=== PATIENT | male | born 1960 | race Caucasian/White ===

== ENCOUNTER 2020-02-26 11:49 | Emergency (ER) | payer OTHER, SELFPAY ==
--- NOTE | 2020-02-26 11:51 | XR_ITS ---
WS: [id number] XR chest 1V portable [id number] REASON FOR EXAM: cp FINDINGS: Postop changes in the right shoulder noted. As well as has the left shoulder. The heart and mediastinal interfaces are normal. Lung juares are mildly hyper aerated suggesting emphysema centril obular. There is no pneumonia, pleural effusion, pulmonary edema, and no pneumothorax. The hilum and apices are normal. No osseous abnormalities. XR/XR chest 1V portable [id number] IMPRESSION: Centrilobular emphysema.
--- NOTE | 2020-02-26 11:51 | ECG_ITS ---
Measurements Intervals [place] Rate: 56 P: 30 MN: 190 QRS: 35 QRSD: 96 T: 45 QT: 453 QTc: 440 SINUS BRADYCARDIA No previous ECG available for comparison Electronically Signed On 02-26-2020 20:33:43 CDT by Barbara Perez M.D. [id number] f
[2020-02-26 11:54] VITALS: BP 170/101; PULSE 58; RESP 17; TEMP 36.9; O2SAT 98; BMI 24.3
[2020-02-26 12:19] VITALS: BP 154/97; PULSE 69; RESP 15; O2SAT 97
--- NOTE | 2020-02-26 12:25 | ED_ITS ---
HPI - Chest Pain General: Chief Complaint: Chest Pain Stated Complaint: CP Time Seen by Provider: 02/26/20 12:06 Source: patient Mode of arrival: ambulatory Limitations: no limitations History of Present Illness: HPI narrative: 59-year-old male who states he has had chest pain since he woke up this morning at 4 AM. Patient sent here from his PCP office for chest pain. Patient given aspirin nitro that he states nitro relieved his pain. His have a history of high blood pressure and is been smoking for 30 years. He denies any worsening of his pain. Denies any radiation or shortness of breath. He had no nausea. complaint: chest pain Onset (ago): hour(s) Onset: during rest Pain location: substernal Associated symptoms: Deny abdominal pain, dyspnea, fever(s), nausea or vomiting Review of Systems Const: Denies: fever(s), chills, body aches or change in appetite Eyes: Denies: blurry vision or eye discomfort ENMT: Denies: throat pain or dental pain Card: Reports: chest pain Resp: Denies: dyspnea GI: Denies: abdominal pain, nausea, vomiting or diarrhea : Denies: dysuria Musc: Denies: neck pain or back pain Skin/Breast: Denies: rash Neuro: Denies: headache(s) Psych: Denies: depression Cordell/Lymph: Denies: easy bruising All/Imm: Denies: urticaria PFSH ED PFSH: Family History Family/Other CAD (coronary artery disease) Diabetes Grandmother Diabetes Other Hypertension Social History Smoking and tobacco status: current every day smoker cigarettes Packs smoked per day: 0.5 Years cigarettes smoked: 30 and smokeless tobacco Smokeless tobacco user: snuff Smokeless tobacco details: can q 2-3 days Second hand smoke exposure: Yes Alcohol intake: current Alcohol intake frequency: few times a month Lives independently: Yes Household members: spouse Marital status: Current occupational status: employed Current occupation: [employer] History of recent travel: No Current gender identity: Male Special channing needs: No Agree to transfusion: Yes Physical Exam Const: COMMON NORMALS: no acute distress, patient oriented x3 and healthy appearing HENMT: COMMON NORMALS: normocephalic and atraumatic HEAD & SCALP: normocephalic and atraumatic Eye: COMMON NORMALS: Equal, round and reactive pupils present and EOMs intact bilaterally PUPIL: Yes Equal, round and reactive pupils present Neck/C-Spine: COMMON NORMALS: full ROM and supple Chest: COMMONS NORMALS: normal inspection of the chest and normal palpation of entire chest wall Resp: COMMON NORMALS: normal respiratory effort, No retractions, No use of accessory muscles and clear to auscultation bilaterally AUSCULTATION: clear to auscultation bilaterally Cardio: COMMON NORMALS: regular rate, regular rhythm and No murmurs present (Cardio) RATE: regular rate RHYTHM: regular rhythm GI: COMMON NORMALS: Normal to inspection, nondistended, normoactive bowel sounds present, Soft to palpation, non-tender and no masses PALPATION: Yes S oft to palpation Extremity: COMMON NORMALS: normal to inspection and full ROM Neuro: COMMON NORMALS: patient oriented x3, moves all extremities and no focal motor deficits Psych: COMMON NORMALS: mental status grossly normal, Normal thought process present and cooperative THOUGHT PROCESS: Normal thought process present Skin: COMMON NORMALS: no rashes or lesions noted and no wounds GENERAL SKIN EXAM: no rashes or lesions noted Course Vital Signs: Vital signs: Vital Signs Temperature 98.4 F 02/26/20 11:54 Pulse Rate 69 02/26/20 12:19 Respiratory Rate 15 02/26/20 12:19 Blood Pressure 154/97 02/26/20 12:19 Pulse Oximetry 97 02/26/20 12:19 MDM - Chest Pain MDM Narrative: Medical decision making narrative: 59-year-old male who presents here with chest pain. Patient's initial and repeat EKG along with troponins are normal. I did offer him admission the refused and states he would rather follow-up outpatient. He is to follow-up with PCP this week and I informed him he needs an outpatient stress test. I informed her if he has any more pain he is to return immediately. Patient understands and agrees to the plan. Lab Data: Labs: Lab Results 02/26/20 02/26/20 02/26/20 Range/Units 12:20 12:20 12:20 WBC 5.9 (4.0-10.0) 10^3/ uL RBC 4.55 (4.1-5.3) 10^6/u L Hgb 15.5 (11.7-16.6) g/dL Hct 46.3 (42.0-52.0) % MCV 101.8 H (80-94) fL MCH 34.1 H (28.0-34.0) pg MCHC 33.5 (30.0-36.0) g/dL RDW 12.5 (12.1-15.1) % Plt Count 193 (130-400) 10^3/c mm MPV 11.8 H (7.4-10.4) fL Neut % (Auto) 64.8 % Lymph % (Auto) 23.6 % [place] % (Auto) 8.9 % Eos % (Auto) 1.7 % Baso % (Auto) 0.7 % Neut # (Auto) 3.8 (1.8-7.7) 10^3/u L Lymph # (Auto) 1.4 (0.8-4.8) 10^3/u L [place] # (Auto) 0.5 (0.2-0.9) 10^3/u L Eos # (Auto) 0.1 (0.0-0.8) 10^3/u L Baso # (Auto) 0.0 (0.0-0.1) 10^3/u L Nucleated RBC % (a uto) 0 % Nucleated RBCs # 0.0 /100WBC Sodium 139 (136-145) mmol/L Potassium 3.9 (3.5-5.1) mmol/L Chloride 103 (98-107) mmol/L Carbon Dioxide 23 (22-29) mmol/L Anion Gap 16.9 (5-19) BUN 19 (6-20) mg/dL Creatinine 0.5 L (0.7-1.2) mg/dL GFR Calculation 170.8 H (90-130) mL/min Glucose 99 (65-115) mg/dL Calculated Osmolal ity 285 (285-295) mOsm/k g Calcium 9.3 (8.5-10.5) mg/dL Total Bilirubin 1.2 (0.15-1.2) mg/dL AST 22 (0-40) U/L ALT 22 (0-41) U/L Alkaline Phosphata se 80 (40-130) IU/L Troponin T Baselin e 6 (0-15) ng/L Troponin T 120 Min [place] (0-15) ng/L Delta Troponin T (0-10) ABS# Total Protein 6.6 (6.6-8.7) g/dL Albumin 4.3 (3.5-5.2) g/dL Globulin 2.3 (1.3-4.6) g/dL 02/26/20 Range/Units 14:10 WBC (4.0-10.0) 10^3/ uL RBC (4.1-5.3) 10^6/u L Hgb (11.7-16.6) g/dL Hct (42.0-52.0) % MCV (80-94) fL MCH (28.0-34.0) pg MCHC (30.0-36.0) g/dL RDW (12.1-15.1) % Plt Count (130-400) 10^3/c mm MPV (7.4-10.4) fL Neut % (Auto) % Lymph % (Auto) % [place] % (Auto) % Eos % (Auto) % Baso % (Auto) % Neut # (Auto) (1.8-7.7) 10^3/u L Lymph # (Auto) (0.8-4.8) 10^3/u L [place] # (Auto) (0.2-0.9) 10^3/u L Eos # (Auto) (0.0-0.8) 10^3/u L Baso # (Auto) (0.0-0.1) 10^3/u L Nucleated RBC % (a uto) % Nucleated RBCs # /100WBC Sodium (136-145) mmol/L Potassium (3.5-5.1) mmol/L Chloride (98-107) mmol/L Carbon Dioxide (22-29) mmol/L Anion Gap (5-19) BUN (6-20) mg/dL Creatinine (0.7-1.2) mg/dL GFR Calculation (90-130) mL/min Glucose (65-115) mg/dL Calculated Osmolal ity (285-295) mOsm/k g Calcium (8.5-10.5) mg/dL Total Bilirubin (0.15-1.2) mg/dL AST (0-40) U/L ALT (0-41) U/L Alkaline Phosphata se (40-130) IU/L Troponin T Baselin e (0-15) ng/L Troponin T 120 Min [place] 6.00 (0-15) ng/L Delta Troponin T 0 (0-10) ABS# Total Protein (6.6-8.7) g/dL Albumin (3.5-5.2) g/dL Globulin (1.3-4.6) g/dL Imaging Data^: CXR: Attestation: I personally reviewed and interpreted this imaging study as follows: My impression: [address] [place] [address] XRay Report Signed Patient: Nikita Amin Unit #: [id number] : 1960 Age/Sex: 59 / M ADM Date: 02/26/20 Loc: ER Room/Bed: Attending Dr: Ordering Provider/Ordering MD: Cherelle Poe MD Date of Service: 02/26/20 Procedure(s): XR chest 1V portable [id number] Accession Number(s): [id number] Report Number: [id number] WS: [id number] XR chest 1V portable [id number] REASON FOR EXAM: cp FINDINGS: Postop changes in the right shoulder noted. As well as has the left shoulder. The heart and mediastinal interfaces are normal. Lung juares are mildly hyper aerated suggesting emphysema centrilobular. There is no pneumonia, pleural effusion, pulmonary edema, and no pneumothorax. The hilum and apices are normal. No osseous abnormalities. XR/XR chest 1V portable [id number] IMPRESSION: Centrilobular emphysema. EKG Data^: EKG 1: Attestation: I personally reviewed and interpreted this EKG as follows: EKG interpretation date: 02/26/20 EKG interpretation time: 12:07 Interpretation: sinus lissette hr [address] or t wave abnormalites qrs 96 qtc 445 EKG 2: Attestation: I personally reviewed and interpreted this EKG as follows: EKG interpretation date: 02/26/20 EKG interpretation time: 14:22 Interpretation: sinus lissette hr [address] or t wave abnormalities qrs 100 qtc 438 Discharge Plan Discharge Patient Disposition: Home, Self-Care Clinical Impression: Chest pain Condition: Stable Prescriptions: No Action lisinopril 10 mg tablet 10 mg PO BID RF: 0 omeprazole magnesium [Prilosec OTC] 20 mg tablet,delayed release (DR/EC) 20 mg PO DAILY RF: 0 Multiple Vitamins Tablet 1 tab PO DAILY RF: 0 clindamycin HCl 300 mg capsule 300 mg PO TID RF: 0 meloxicam 15 mg tablet 15 mg PO DAILY RF: 0 nifedipine 30 mg tablet extended release 30 mg PO DAILY PRN (Reason: UNKNOWN) RF: 0 Tylenol Extra Strength 500 mg Tablet 1,000 - 1,500 mg PO PRN RF: 0 Discharge Orders: Discharge Order (Routine); Ordered 02/26/20 Ordered By: Cherelle Poe Discharge Diet: Advance as tolerated Discharge Activity: Resume usual activity Patient Instructions: Chest Pain (ED) Coding Level of Care Code ED Barber Apprentice for Nerissag Fwd Exam Comprehensive
[2020-02-26 12:26] LABS: Basophils % 0.7 %; Eosinophils # 0.1 10^3/uL (0.0-0.8); Eosinophils % 1.7 %; Hematocrit 46.3 % (42.0-52.0); Hemoglobin 15.5 g/dL (11.7-16.6); Lymphocytes # 1.4 10^3/uL (0.8-4.8); Lymphocytes % 23.6 %; Mean Corpuscular HGB Conc 33.5 g/dL (30.0-36.0); Mean Corpuscular Hemoglobin 34.1 pg (28.0-34.0); Mean Corpuscular Volume 101.8 fL (80-94); Mean Platelet Volume 11.8 fL (7.4-10.4); Monocytes # 0.5 10^3/uL (0.2-0.9); Monocytes % 8.9 %; Neutrophils # 3.8 10^3/uL (1.8-7.7); Neutrophils % 64.8 %; Nucleated Red Blood Cells % 0 %; Platelet Count 193 10^3/cmm (130-400); Red Blood Count 4.55 10^6/uL (4.1-5.3); Red Cell Distribution Width 12.5 % (12.1-15.1); White Blood Count 5.9 10^3/uL (4.0-10.0)
[2020-02-26 12:39] LABS: Alanine Aminotransferase 22 U/L (0-41); Albumin Level 4.3 g/dL (3.5-5.2); Alkaline Phosphatase 80 IU/L (40-130); Anion Gap 16.9 (5-19); Aspartate Amino Transferase 22 U/L (0-40); Blood Urea Nitrogen 19 mg/dL (6-20); Calcium 9.3 mg/dL (8.5-10.5); Carbon Dioxide 23 mmol/L (22-29); Chloride 103 mmol/L (98-107); Globulin 2.3 g/dL (1.3-4.6); Glomerular Filtration Rate 170.8 mL/min (90-130); Glucose 99 mg/dL (65-115); Osmolality Calculated 285 mOsm/kg (285-295); Potassium 3.9 mmol/L (3.5-5.1); Sodium 139 mmol/L (136-145); Total Bilirubin 1.2 mg/dL (0.15-1.2); Total Protein 6.6 g/dL (6.6-8.7)
[2020-02-26 12:42] LABS: Troponin(5th) Baseline 6 ng/L (0-15)
--- NOTE | 2020-02-26 13:51 | ECG_ITS ---
Measurements Intervals [place] Rate: 56 P: 28 W[place]: 205 QRS: 42 QRSD: 100 T: 52 QT: 447 QTc: 432 SINUS BRADYCARDIA INTERPRETATION BASED ON A DEFAULT AGE OF 40 YEARS No previous ECG available for comparison Electronically Signed On 02-26-2020 20:36:13 CDT by Barbara Perez M.D. [id number] f
[2020-02-26 14:31] LABS: Troponin 5 2HR Delta 0 ABS# (0-10)
[2020-02-26 14:51] VITALS: BP 156/96; PULSE 58; RESP 16; O2SAT 98
== END 2020-02-26 14:53 | disposition home or self-care (01) ==
PROVIDERS: Emergency Provider Emergency Medicine
DX: R07.9 Chest pain, unspecified (principal); F17.210 Nicotine dependence, cigarettes, uncomplicated
CPT/HCPCS: 12345; 36415; 71045; 80053; 84484; 85025; 93005; 99283; 99284

== ENCOUNTER 2021-01-14 08:12 | Outpatient (CLI) | payer OTHER, SELFPAY ==
--- NOTE | 2021-01-14 08:16 | XRR_ITS ---
PROCEDURE INFORMATION: Exam: XR Right Shoulder Exam date and time: 01/14/2021 8:34 AM Age: 60 years old Clinical indication: Right; Prior surgery; Surgery type: Rotator; Patient HX: Shoulder pain since lifting feed; Additional info: Shoulder pain right TECHNIQUE: Imaging protocol: XR Right shoulder. Views: 2 or more views. COMPARISON: CTA Upper Extrem RIGHT [id number] 10/26/2017 9:02 AM FINDINGS: Bones/joints: Two metal suture anchors are present in the humeral head. Degenerative changes are present in the AC joint with narrowing and small osteophytes. The glenohumeral joint is unremarkable. No fracture or other acute abnormalities are seen. Soft tissues: Normal. XR/XR shoulder RT min 2V* [id number] IMPRESSION: Degenerative changes in the AC joint. No acute abnormality.
== END 2021-01-14 08:13 | disposition home or self-care (01) ==
PROVIDERS: Visit Provider Electrodiagnostic Medicine
DX: M75.101 Unspecified rotator cuff tear or rupture of right shoulder, not specified as traumatic (principal); M25.511 Pain in right shoulder
CPT/HCPCS: 73030

== ENCOUNTER 2021-02-13 10:42 | Outpatient (CLI) | payer OTHER, SELFPAY ==
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
== END 2021-02-13 10:43 | disposition home or self-care (01) ==
LOC: RADSHAW 10:47
PROVIDERS: PCP Electrodiagnostic Medicine; Visit Provider Electrodiagnostic Medicine
DX: M75.101 Unspecified rotator cuff tear or rupture of right shoulder, not specified as traumatic (principal); M25.511 Pain in right shoulder
CPT/HCPCS: 73221

== ENCOUNTER 2021-03-21 14:16 | Outpatient (CLI) | payer OTHER, SELFPAY ==
--- NOTE | 2021-03-21 14:41 | XR_ITS ---
WS: [id number] Chest 2 views, 03/21/2021 Clinical Data: PRE OP FOR R ROTATOR CUFF TEAR Comparison: Portable chest, 02/26/2020. Findings: No nodules, masses or effusions are seen. The heart is normal. The pulmonary vascularity is not increased. No pneumonia or pneumothorax is seen. The aortic arch and descending aorta show tortu osity. There are 2 orthopedic anchors in the right humeral head and one in the left humeral head. XR/XR chest 2V* [id number] Impression: Atherosclerosis.
--- NOTE | 2021-03-21 14:42 | ECG_ITS ---
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 Measurements Intervals [place] Rate: 86 P: 31 PA: 197 QRS: 45 QRSD: 99 T: 40 QT: 366 QTc: 439 Interpretive Statements SINUS RHYTHM Compared to ECG 02/26/2020 14:22:16 Sinus bradycardia no longer present Electronically Signed On 03-26-2021 22:08:39 CDT by Abbie Sharpe M.D. [id number] f
[2021-03-21 15:07] LABS: Basophils % 0.6 %; Eosinophils # 0.1 10^3/uL (0.0-0.8); Eosinophils % 1.9 %; Hematocrit 46.1 % (42.0-52.0); Hemoglobin 15.3 g/dL (11.7-16.6); Lymphocytes # 1.5 10^3/uL (0.8-4.8); Lymphocytes % 24.4 %; Mean Corpuscular HGB Conc 33.2 g/dL (30.0-36.0); Mean Corpuscular Hemoglobin 33.3 pg (28.0-34.0); Mean Corpuscular Volume 100.4 fL (80-94); Mean Platelet Volume 11.7 fL (7.4-10.4); Monocytes # 0.6 10^3/uL (0.2-0.9); Monocytes % 9.7 %; Neutrophils # 3.96 10^3/uL (1.8-7.7); Neutrophils % 63.2 %; Nucleated Red Blood Cells % 0 %; Platelet Count 204 10^3/cmm (130-400); Red Blood Count 4.59 10^6/uL (4.1-5.3); Red Cell Distribution Width 12.5 % (12.1-15.1); White Blood Count 6.3 10^3/uL (4.0-10.0)
[2021-03-21 15:31] LABS: Anion Gap 13.1 (5-19); Blood Urea Nitrogen 18 mg/dL (6-20); Calcium 8.9 mg/dL (8.5-10.5); Carbon Dioxide 26 mmol/L (22-29); Chloride 104 mmol/L (98-107); Glomerular Filtration Rate 137.9 mL/min (90-130); Glucose 112 mg/dL (65-115); Osmolality Calculated 291 mOsm/kg (285-295); Potassium 4.1 mmol/L (3.5-5.1); Sodium 139 mmol/L (136-145)
== END 2021-03-21 14:17 | disposition home or self-care (01) ==
PROVIDERS: PCP Electrodiagnostic Medicine; Visit Provider Orthopaedic Surgery
DX: Z01.818 Encounter for other preprocedural examination (principal); M75.101 Unspecified rotator cuff tear or rupture of right shoulder, not specified as traumatic; I70.90 Unspecified atherosclerosis
CPT/HCPCS: 36415; 71046; 80048; 85025; 93005

== ENCOUNTER 2021-06-10 06:00 | Outpatient (RCR) | payer OTHER, SELFPAY | END 2021-06-12 23:59 | disposition home or self-care (01) | LOC: TPT 06:00 | PROVIDERS: PCP Electrodiagnostic Medicine; Referring Provider Orthopaedic Surgery; Visit Provider Orthopaedic Surgery | DX: S46.091D Other injury of muscle(s) and tendon(s) of the rotator cuff of right shoulder, subsequent encounter (principal); X58.XXXD Exposure to other specified factors, subsequent encounter | CPT/HCPCS: 97110; 97140; 97161 ==

== ENCOUNTER 2021-06-13 06:00 | Outpatient (RCR) | payer OTHER, SELFPAY | END 2021-07-13 23:59 | disposition home or self-care (01) | LOC: TPT 06:00 | PROVIDERS: PCP Electrodiagnostic Medicine; Referring Provider Orthopaedic Surgery; Visit Provider Orthopaedic Surgery | DX: Z47.89 Encounter for other orthopedic aftercare (principal) | CPT/HCPCS: 97110; 97140; 97164 ==

== ENCOUNTER 2021-07-15 16:25 | Outpatient (CLI) | payer OTHER, SELFPAY ==
--- NOTE | 2021-07-15 16:45 | MR_ITS ---
WS: [id number] MRI RIGHT SHOULDER NONCONTRAST TECHNIQUE: Sagittal T2, coronal T1, T2 and proton density imaging. Axial gradient PDE imaging. CLINICAL INFORMATION: POST-OP SHOULDER ROTATOR CUFF REPAIR COMPARISON: MRI February 13, 2021 FINDINGS: Rotator cuff anchors. Moderate degenerative arthritis AC joint with mild downsloping acromion. Slight subacromial spurring. Since the prior examination, interval development of new high-grade rotator cu ff tear. High-grade full-thickness rotator cuff tear involving the infraspinatus with tendon retracti on to the level of the glenohumeral joint. Associated subacromial fluid. The distal anterior supraspi natus tendon remains intact at the rotator cuff anchors. Infraspinatus tear extends into the dorsal b jaxon of the supraspinatus. Chronic thinning of the supraspinatus. Normal teres minor. Subscapularis appears intact with small intrasubstance tear distally. Intra-artic ular biceps tendon is intact. Intact biceps tendon within the bicipital groove. Biceps labral anchor is intact. Degenerative fraying of the glenoid labrum. No acute appearing labral tears. MR/MR shoulder RT wo con* [id number] IMPRESSION: 1. Interval development of high-grade complete tear involving the infraspinatu s with tendon retraction to the level of the glenohumeral joint. Full-thickness tear extends into the dorsal muscle belly of the supraspinatus with intrasubst ance tear. Distal supraspinatus tendon remains intact at the rotator cuff ancho rs distally. 2. Chronic thinning of the supraspinatus. Normal teres minor 3. Small linear intrasubstance tear involving the distal subscapularis which r emains intact. 4. Normal intra-articular biceps tendon. Biceps tendon in the bicipital groove is intact. 5. Glenoid labrum appears grossly normal. 6. Moderate degenerative arthritis AC joint with mild downsloping of the acrom ium and slight subacromial spurring.
== END 2021-07-15 16:26 | disposition home or self-care (01) ==
LOC: RADSHAW 16:28
PROVIDERS: PCP Electrodiagnostic Medicine; Visit Provider Orthopaedic Surgery
DX: S46.091D Other injury of muscle(s) and tendon(s) of the rotator cuff of right shoulder, subsequent encounter (principal); X58.XXXD Exposure to other specified factors, subsequent encounter; M19.011 Primary osteoarthritis, right shoulder
CPT/HCPCS: 73221

== ENCOUNTER 2021-10-23 15:42 | Emergency (ER) | payer OTHER, SELFPAY ==
[2021-10-23 16:13] VITALS: BP 106/71; PULSE 106; RESP 17; O2SAT 96; BMI 23.9
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
[2021-10-23] MEDS: cephALEXin 500 mg Capsule PO (20:42)
[2021-10-23] MEDS: bacitracin ointment Pkt 1 EACH TOPICAL ×2 (20:42)
== END 2021-10-23 20:47 | disposition home or self-care (01) ==
PROVIDERS: Emergency Provider Nurse Practitioner Family; PCP Electrodiagnostic Medicine
DX: T23.202A Burn of second degree of left hand, unspecified site, initial encounter (principal); X08.8XXA Exposure to other specified smoke, fire and flames, initial encounter; F17.210 Nicotine dependence, cigarettes, uncomplicated; F17.220 Nicotine dependence, chewing tobacco, uncomplicated
CPT/HCPCS: 16020; 99283

== ENCOUNTER 2022-08-28 10:09 | Emergency (ER) | payer OTHER, SELFPAY ==
[2022-08-28 10:18] VITALS: BP 127/85; PULSE 91; RESP 14; TEMP 36.8; O2SAT 97; BMI 22.8
[2022-08-28 10:22] VITALS: PULSE 90; O2SAT 97
--- NOTE | 2022-08-28 10:25 | XR_ITS ---
WS: [id number] Lumbar spine, 3 views, 08/28/2022 Clinical Data: radiating pain Comparison: None. Findings: No compression fractures or subluxation is seen. There is degenerative disc narrowing at L4-L5 and L5 -S1. There are anterior osteophytes at L1-L5. There is a levoscoliosis.. The transverse processes and SI joints are normal. XR/XR lumbar spine 2-3V* [id number] Impression: 1. Degenerative disc narrowing at L4-L5. 2. Anterior osteophytes L1-L5 with levoscoliosis.
--- NOTE | 2022-08-28 10:30 | ED_ITS ---
HPI - Back Pain/Injury General: Chief Complaint: Back Pain/Injury Stated Complaint: back pain Time Seen by Provider: 08/28/22 10:14 Source: patient Mode of arrival: ambulatory Limitations: no limitations History of Present Illness: 62-year-old male presents to the ER today for low back pain radiating down his right leg for the last week and a half. He reports he has had sciatica in the past however it was on the left side and it took over 2 weeks to resolve. Patient reports when he felt this, about a week ago he knew this was going to get worse. Patient reports he saw his doctor on Wednesday and as given a steroid injection, prednisone, and Flexeril. Patient reports he has been taking that with no improvement. He reports the pain is severe and he is having difficulty working. Patient reports he has to work 2 days next week and feels like he needs to get through those 2 days before the holidays. He denies any loss of bowel or bladder control. Patient reports this feels just like the last time he had sciatica on the other side. Review of Systems General: Reports: 10 or more systems reviewed and unremarkable except in HPI and below PFSH ED PFSH: Medical History GERD (gastroesophageal reflux disease) Raynaud disease Surgical History History of orthopedic surgery History of tonsillectomy and adenoidectomy Hx of appendectomy Family History Family/Other CAD (coronary artery disease) Diabetes Grandmother Diabetes Other Hypertension Social History Smoking and tobacco status: current every day smoker cigarettes Packs smoked per day: 0.5 Years cigarettes smoked: 30 and smokeless tobacco Smokeless tobacco user: snuff Smokeless tobacco details: can q 2-3 days Second hand smoke exposure: Yes Alcohol intake: current Alcohol intake frequency: few times a month Lives independently: Yes Household members: spouse Marital status: Current occupational status: employed Current occupation: [employer] History of recent travel: No Current gender identity: Male Special channing needs: No Agree to transfusion: Yes Physical Exam Const: COMMON NORMALS: no acute distress, average body habitus, patient oriented x3, no limitations, healthy appearing, alert and well nourished Resp: COMMON NORMALS: normal respiratory effort and No retractions Cardio: COMMON NORMALS: regular rate and regular rhythm RATE: regular rate RHYTHM: regular rhythm Back/Pelvis: OTHER: Tenderness of the right SI joint. No spinous process tenderness noted on exam. Normal gait and ambulation. Pain with flexion of the right hip noted. Extremity: COMMON NORMALS: normal to inspection, full ROM and no pedal edema Neuro: COMMON NORMALS: patient oriented x3 SENSORIUM/ORIENTATION: Yes alert Psych: COMMON NORMALS: mental status grossly normal, Normal thought process present and cooperative THOUGHT PROCESS: Normal thought process present Skin: COMMON NORMALS: no rashes or lesions noted and no wounds GENERAL SKIN EXAM: no rashes or lesions noted Course ED course: Patient presents to the ER with pain radiating down his right leg. Patient reports he has had this before on the left side. He was seen by his PCP on Wednesday and given prednisone and a muscle relaxer. Patient takes meloxicam at home. Patient reports pain has not improved at all at this time with medications. It has not changed or worsened it is just not improving. We will get an x-ray at this time. We will do tramadol for pain. Vital Signs: Vital signs: Vital Signs Temperature 98.2 F 08/28/22 10:18 Pulse Rate 90 08/28/22 10:22 Respiratory Rate 14 08/28/22 10:18 Blood Pressure 127/85 08/28/22 10:18 Pulse Oximetry 97 08/28/22 10:22 Oxygen Delivery Me thod 08/28/22 10:22 MDM - Back Pain/Injury Medical Decision Making X-ray of the L-spine indicates degenerative disc narrowing L4-L5 and scoliosis of L1-L5. Likely this is worsening patient's sciatic pain at this time. We will treat with tramadol for pain. Patient should continue his Flexeril, meloxicam, and prednisone at home. Warm, moist heat recommended. Rest recommended stretching recommended. If pain not better in 4 to 5 days I recommend following up with PCP to discuss possible MRI versus physical therapy versus other treatment. Return to the ER with any new or worsening symptoms including any neurological deficits. Patient verbalized understanding and was in agreement with the treatment plan. Labs Radiology Impressions Lumbar Spine X-Ray 08/28/22 10:25 Impression: 1. Degenerative disc narrowing at L4-L5. 2. Anterior osteophytes L1-L5 with levoscoliosis. Critical Care Time Critical Care Time: Critical Care Time: No Discharge Plan Discharge Patient Disposition: Home Clinical Impression: Sciatica Qualifiers: Laterality: right Qualified Code(s): M54.31 - Sciatica, right side Condition: Stable Prescriptions: New tramadol 50 mg tablet 50 mg PO TID PRN (Reason: pain) Qty: 15 0RF No Action lisinopril 10 mg tablet 10 mg PO BID Rx Instructions: rx written for 10mg bid but pt states he only takes 10mg once a day omeprazole magnesium [Prilosec OTC] 20 mg tablet,delayed release (DR/EC) 20 mg PO DAILY azithromycin [Zithromax Z-Saroj] 250 mg tablet See Rx Instructions PO .COMPLEX Qty: 6 0RF Rx Instructions: For 250 mg dose pack: take 500 mg today (day 1), then 250 mg for 4 days (days 2-5) PO Claritin-D 12 Hour 5-120 mg tablet extended release 12 hr 1 tab PO Q12H Qty: 60 2RF Multiple Vitamins Tablet 1 tab PO DAILY meloxicam 15 mg tablet 15 mg PO DAILY nifedipine 30 mg tablet extended release 30 mg PO DAILY PRN (Reason: UNKNOWN) Rx Instructions: PT STATES HE ONLY TAKES PRN-PT STATES HE HASNT TAKEN THIS MEDICATION FOR A WEEK OR SO Tylenol Extra Strength 500 mg Tablet 1,000 - 1,500 mg PO PRN bacitracin zinc 500 unit/gram ointment 1 applic topical BID Qty: 28.4 2RF Discharge Orders: Discharge ED (Routine); Ordered 08/28/22 Ordered By: Yoly Song Referrals: Christ Miranda DO [Primary Care Provider] - Discharge Diet: Usual diet Discharge Activity: Increase activity as tolerated Patient Instructions: Opioid Safety, Pain Management Activity Restrictions/Additional Instructions: Warm, moist heat recommended. Rest recommended. Stretching recommended. Take tramadol for pain. Continue home medications including muscle relaxer, steroid, and anti-inflammatory. Follow-up with PCP in 5 to 7 days if no improvement in pain. Return to the ER with new or worsening symptoms. Coding Level of Care Code ED Transportation Planning Technician for Chadwick Oro
[2022-08-28] MEDS: TRAMadol 50 mg Tablet PO (10:40)
== END 2022-08-28 11:00 | disposition home or self-care (01) ==
PROVIDERS: Emergency Provider Physician Assistant; PCP Electrodiagnostic Medicine
DX: M54.31 Sciatica, right side (principal); F17.210 Nicotine dependence, cigarettes, uncomplicated
CPT/HCPCS: 72100; 99283

== ENCOUNTER 2022-09-25 08:15 | Outpatient (CLI) | payer OTHER, SELFPAY ==
--- NOTE | 2022-09-25 08:34 | MR_ITS ---
WS: [id number] MRI LUMBAR SPINE NONCONTRAST HISTORY: LUMBAR BACK PAIN W/RADICULOPATHY RLE COMPARISON: None available. TECHNIQUE: Sagittal and axial multisequence imaging is submitted. LEFT curvature lumbar spine with asymmetric disc space narrowing at L3-4 and L4-5. L4 anterolisthesis by 3.8 mm. Disc spaces are narrowed and desiccated. Reactive marrow edema along th e adjacent endplates of L5 and S1 on the LEFT. Conus terminates normally at L1. L1-L2: Diffuse annular disc bulging and osteophytic ridging. Small amount of fluid in the facet joint s. Mild bilateral foraminal narrowing. L2-L3: Moderate annular disc bulging and osteophytic ridging. Very mild foraminal narrowing. Mild enc roachment into the subarticular recesses. No high-grade stenosis. L3-L4: Marked osteophytic ridging and annular disc bulging. Very mild ligamentum flavum hypertrophy. Focal RIGHT foraminal disc protrusion with annular fissure. There is mild disc contact on the amando ing L4 nerve roots but also on the RIGHT L3 nerve root. Mild central, subarticular recess and foramin al stenosis. L4-L5: Diffuse asymmetric disc bulging and osteophytic ridging. Ligamentum flavum hypertrophy and mil d facet arthritis. There is a small central disc protrusion and larger RIGHT foraminal disc protrusio n. Disc protrusion contacts and deforms the exiting RIGHT L4 nerve root and there is also disc contac t on the traversing L5 nerve roots bilaterally. Mild central and RIGHT foraminal stenosis. L5-S1: Mild diffuse annular disc bulging. Focal disc protrusion and osteophyte contacts the LEFT S1 n erve root and mild LEFT foraminal stenosis. Paravertebral soft tissues are negative. MR/MR lumbar spine wo con* [id number] IMPRESSION: 1. Degenerative LEFT curvature lumbar spine with asymmetric disc space narrowi ng most significant at L3-4 and L4-5. 2. RIGHT foraminal disc protrusion at L3-4 disc contacts the traversing L4 ner ve roots and also the RIGHT L3 nerve root. Mild central, subarticular recess an d foraminal stenosis at L3-4. 3. Small central disc protrusion at L4-5 with a larger RIGHT foraminal disc pr otrusion. RIGHT foraminal disc protrusion contacts and deforms the RIGHT L4 ner ve root. 4. Mild central and RIGHT foraminal stenosis at L4-5. 5. Focal disc protrusion contacts the traversing LEFT S1 nerve root and mild L EFT foraminal stenosis at L5-S1.
== END 2022-09-25 08:16 | disposition home or self-care (01) ==
PROVIDERS: PCP Electrodiagnostic Medicine; Visit Provider Electrodiagnostic Medicine
DX: M51.16 Intervertebral disc disorders with radiculopathy, lumbar region (principal); M48.061 Spinal stenosis, lumbar region without neurogenic claudication
CPT/HCPCS: 72148

== ENCOUNTER → 2022-10-27 13:41 | Outpatient (BNVA) | payer OTHER, SELFPAY | PROVIDERS: PCP Electrodiagnostic Medicine; Referring Provider Electrodiagnostic Medicine; Visit Provider Orthopaedic Surgery | DX: M47.816 Spondylosis without myelopathy or radiculopathy, lumbar region (principal) | CPT/HCPCS: 72120 ==

== ENCOUNTER 2022-11-06 09:04 | Day surgery (SDC) | payer OTHER, SELFPAY ==
[2022-10-30 08:43] VITALS: BMI 23.6
--- NOTE | 2022-10-30 09:55 | P.ANESASSM_ITS ---
Pre-Anesthetic Assessment Height/Weight: Height 1.73 m Weight 70.307 kg Operation Date: 11/06/22 08:55 Proposed Procedures p Lumbar Spine Decompression:L3/4 05245,L4/5 93784 M48.062(Right) - Kit Mcclendon DO Familial anesthetic complications: none Was Beta Tisha taken within 24 hours: N/A Was Clonidine taken within 24 hours: N/A Social Alcohol and Tobacco Exam alert, oriented x 3 and regular rate & rhythm Airway Submandibular: within normal limits Cervical ROM: within normal limits Mallampati: Class II Dentition: chipped Pulmonary Chronic Obstructive Pulmonary Disease CV/HEM Hypertension GI Gastroesophageal Reflux Disease Musc/skel Lower Back Pain and Osteoarthritis/DJD Anesthetic Plan ASA status: 3 Anesthesia: General Medications/Allergies Home Medications Medication Instructions Recorded Confirmed Last Taken Type acetaminophen 500 mg tablet 1,000 - 1,500 mg PO PRN 02/26/20 10/30/22 Unknown History (Tylenol Extra Strength) lisinopril 10 mg tablet 10 mg PO BID 02/26/20 10/30/22 10/30/22 History meloxicam 15 mg tablet 15 mg PO DAILY 02/26/20 10/30/22 10/30/22 History multivitamin (Multiple Vitamins 1 tab PO DAILY 02/26/20 10/30/22 Unknown History tablet) nifedipine 30 mg tablet,extended 30 mg PO DAILY PRN UNKNOWN 02/26/20 10/30/22 10/30/22 History release omeprazole magnesium 20 mg 20 mg PO DAILY 02/26/20 10/30/22 10/30/22 History tablet,delayed release (Prilosec OTC) loratadine 5 mg-pseudoephedrine ER 1 tab PO Q12H #60 tabs 04/20/22 10/30/22 Unknown Rx 120 mg tablet,extended release,12hr (Claritin-D 12 Hour) gabapentin 300 mg capsule 300 mg PO DAILY 10/30/22 10/30/22 10/30/22 History Allergies Allergy/AdvReac Type Severity Reaction Status Date / Time No Known Allergies Allergy Verified 10/30/22 08:40 [facility] Anesthesia Medical History GERD (gastroesophageal reflux disease) Raynaud disease Surgical History History of orthopedic surgery History of tonsillectomy and adenoidectomy Hx of appendectomy Family History Family/Other CAD (coronary artery disease) Diabetes Grandmother Diabetes Other Hypertension Social History Smoking and tobacco status: current every day smoker cigarettes Packs smoked per day: 0.5 Years cigarettes smoked: 30 and smokeless tobacco Smokeless tobacco user: snuff Smokeless tobacco details: can q 2-3 days Second hand smoke exposure: Yes Alcohol intake: current Alcohol intake frequency: few times a month Lives independently: Yes Household members: spouse Marital status: Current occupational status: employed Current occupation: [employer] History of recent travel: No Current gender identity: Male Special channing needs: No Agree to transfusion: Yes Data Anesthesia Cardiac Studies: No Data to Display
[2022-11-06] VITALS (10 sets, daily range): BP systolic 129–156; BP diastolic 90–97; PULSE 57–72; RESP 16–20; TEMP 36.1–36.9; O2SAT 93–100
[2022-11-06] MEDS: sodium chloride 0.9% 1,000 ML 30 ML IV (09:41)
--- NOTE | 2022-11-06 09:47 | P.ANESUD_ITS ---
Pre-Anesthetic Update Pre-Anesthetic Assessment: Date of Surgery/Procedure: 11/06/22 Preop Keri gnosis: Lumbar stenosis with neurogenic claudication Proposed Procedure: Operation Date: 11/06/22 11:20 Proposed Procedures p Lumbar Spine Decompression:L3/4 54842,L4/5 35300 M48.062(Right) - Kit Mcclendon, DO Any changes to Pre-Anesthetic Assessment?: No Last Intake: Intake Last Liquid Date 11/05/22 Last Liquid Time 20:00 Last Solid Date 11/05/22 Last Solid Time 20:00 Vitals: Temperature 98.5 F 11/06/22 09:20 Temperature Source Temporal Artery S can 11/06/22 09:20 Pulse Rate 67 11/06/22 09:20 Respiratory Rate 18 11/06/22 09:20 Blood Pressure 147/96 11/06/22 09:20 Blood Pressure Edwina n 113 11/06/22 09:20 Pulse Oximetry 97 11/06/22 09:20 Oxygen Delivery Me thod 11/06/22 09:20 Exam: Pre-Anes Outpt Exam: alert, oriented x 3, clear to auscultation bilaterally and regular rate & rhythm Other Pertinent Information: Other Pertinent Information: Caution with r arm for flipping (failed rotator cuff surgery) Cardiac Studies: No Data to Display
--- NOTE | 2022-11-06 10:24 | W.PM.OPSUD ---
Surgery/Procedure H&P Update DATE OF PROCEDURE: November 06, 2022 DATE H&P PERFORMED: 10/27/22 H&P UPDATE INFORMATION: I have reviewed H&P completed within last 30 days, I have examined patient prior to procedure and No changes to prior documentation PREOP DIAGNOSIS: Lumbar stenosis with neurogenic claudication PLANNED PROCEDURE: Operation Date: 11/06/22 11:20 Proposed Procedures p Lumbar Spine Decompression:L3/4 10093,L4/5 72301 M48.062(Right) - Kit Mcclendon DO
[2022-11-06 10:46] LABS: Anion Gap 12.9 (5-19); Blood Urea Nitrogen 13 mg/dL (8-23); Calcium 8.5 mg/dL (8.5-10.5); Carbon Dioxide 23 mmol/L (22-29); Chloride 105 mmol/L (98-107); Glucose 94 mg/dL (65-115); Osmolality Calculated 284 mOsm/kg (285-295); Potassium 3.9 mmol/L (3.5-5.1); Sodium 137 mmol/L (136-145)
[2022-11-06] MEDS: ceFAZolin 2,000 MG in sodium chloride 0.9% (plus) 50 ML 100 MG IV (11:00)
[2022-11-06] MEDS: lidocaine-epi 1% 20 mL INJ INJECTION (11:28)
--- NOTE | 2022-11-06 12:22 | P.OP_ITS ---
Operative Report Date of procedure: November 06, 2022 Pre-op diagnosis: Preop Diagnosis Lumbar stenosis with neurogenic claudication Post-op diagnosis: same Procedure done: 1. L3/4 laminectomy with partial facetectomy 2. L4/5 laminectomy with partial facetectomy Surgeon: Kit Mcclendon Lead Quality Control Technician: none Estimated blood loss (mL): 25 Procedure: 1. L3/4 laminectomy with partial facetectomy 2. L4/5 laminectomy with partial facetectomy Patient is brought to the operative suite. After undergoing anesthesia they are placed in the prone position. All areas of impingement are well padded. Patient is then prepped and draped in the normal sterile fashion. A skin incision is made over the L3/4 level. This is confirmed under c-arm guidance. A series of dilators are passed and the tubular retractor is docked on the L3 lamina. A bovie is used to clear the soft tissue off the lamina and the L 3/4 facet joint. A high speed derrick is then used to perform the hayley ctomy and take down the medial aspect of the L 3/4 facet joint. A kerrison rongeure was then used to take down the remaining lamina and smooth the edge of the laminectomy up to the point where the ligamentum flavum attaches. Attention was then brought to the medial aspect of the facet joint. The remaining medial aspect of the superior and inferior aspect of the facet joint were taken down with the kerrison from the pedicle of L3 to L 4. The facet joint had significant hypertrophy. Attention was then brought to the Ligamentum Flavum. The ligament was taken down from the lamina of L3 to L4 and out medially to the remaining facet joint. The ligament was thick. The dura was then exposed. The dura was in good repair. The L3 nerve was then traced with a curette out the L3/4 foramen and found to be adequately decompressed. The L4 nerve was traced with a curette around the L4 pedicle. The lateral recess was opened with a kerrison helping to further decompress the L4 nerve. Wound is then irrigated copiously with saline and surgiflo is used to stop any bleeding. The tubular retractor is removed and A skin incision is made over the L4/5 level. This is confirmed under c-arm guidance. A series of dilators are passed and the tubular retractor is docked on the L4 lamina. A bovie is used to clear the soft tissue off the lamina and the L 4/5 facet joint. A high speed derrick is then used to perform the laminectomy and take down the medial aspect of the L 4/5 facet joint. A kerrison rongeure was then used to take down the remaining lamina and smooth the edge of the laminectomy up to the point where the ligamentum flavum attaches. Attention was then brought to the medial aspect of the facet joint. The remaining medial aspect of the superior and inferior aspect of the facet joint were taken down with the kerrison from the pedicle of L4 to L 5. The facet joint had significant hypertrophy. Attention was then brought to the Ligamentum Flavum. The ligament was taken down from the lamina of L4 to L5 and out medially to the remaining facet joint. The ligament was thick. The dura was then exposed. The dura was in good repair. The L4 nerve was then traced with a curette out the L4/5 foramen and found to be adequately decompressed. The L5 nerve was traced with a curette around the L5 pedicle. The lateral recess was opened with a kerrison helping to further decompress the L5 nerve. Wound is then irrigated copiously with saline and surgiflo is used to stop any bleeding. The tubular retractor is removed and the wound is closed with vicryl and monocryl suture. Glue is then used to protect the wound. A sterile dressing is then placed. Patient was then placed in the supine position and transferred to the PACU in stable condition.
[2022-11-06] MEDS: HYDROcodone-acetaminophen 5-325 mg Tablet 1 TAB PO (13:24)
--- NOTE | 2022-11-06 18:06 | ANE.PACU2 ---
Inpatient post-anesthesia follow up: Airway intact: Yes Vital signs: Temperature 98.5 F Pulse Rate 60 Respiratory Rate 18 Blood Pressure 156/96 Pulse Oximetry 95 Oxygen Delivery Me thod Room Air Oxygen Flow Rate 6 Fraction of Inspir ed Oxygen Hydration adequate: Yes Nausea and vomiting: No Pain level: 1 Mental status: Baseline
== END 2022-11-06 13:45 | disposition home or self-care (01) ==
PROVIDERS: PCP Electrodiagnostic Medicine; Visit Provider Orthopaedic Surgery
PROC: (CPT 63005; principal; 2022-11-06 10:50)
DX: M48.062 Spinal stenosis, lumbar region with neurogenic claudication (principal); J44.9 Chronic obstructive pulmonary disease, unspecified; I10 Essential (primary) hypertension; K21.9 Gastro-esophageal reflux disease without esophagitis; F17.210 Nicotine dependence, cigarettes, uncomplicated
CPT/HCPCS: 63047; 63048; 36415; 72020; 76000; 80048; J0131; J0690; J1100; J1170; J1885; J2370; J2405; J2704; J3010; J3490; J7030

== ENCOUNTER → 2023-03-25 08:03 | Outpatient (BNVA) | payer OTHER, SELFPAY | PROVIDERS: PCP Electrodiagnostic Medicine; Visit Provider Orthopaedic Surgery | DX: Z48.89 Encounter for other specified surgical aftercare (principal); M48.062 Spinal stenosis, lumbar region with neurogenic claudication | CPT/HCPCS: 72100 ==

== ENCOUNTER 2023-05-11 15:41 | Outpatient (CLI) | payer OTHER, SELFPAY ==
--- NOTE | 2023-05-11 16:00 | MR_ITS ---
WS: [id number] MRI LUMBAR SPINE NONCONTRAST TECHNIQUE: Sagittal T1, T2 and STIR imaging. Axial T1 and T2 imaging. CLINICAL INFORMATION: low back pain COMPARISON: MRI 09/25/2022 FINDINGS: Mild lumbar curve. No acute compression. No high-grade central canal stenosis. Alignment is unchanged compared to previous. L1-L2: Mild annular bulging. Mild facet arthropathy. Spinal canal and foramen are patent. L2-L3: Mild annular bulging. Mild narrowing of the subarticular recess bilaterally. Mild facet arthro madonna. Mild LEFT foraminal narrowing. L3-L4: Slight anterolisthesis L3 on L4. Mild annular bulging with narrowing of the RIGHT subarticular recess. Slight impingement traversing RIGHT L4 nerve root. Moderate facet arthropathy. Small facet e ffusions. Severe RIGHT foraminal narrowing impinges the exiting RIGHT L3 nerve root. This appears pro gressed from previous with increased foraminal protrusion. L4-L5: Mild annular bulging. Impingement RIGHT subarticular recess and traversing RIGHT greater than LEFT L5 nerve roots. Moderate facet arthropathy with small facet effusions. Moderate RIGHT foraminal narrowing impinges the exiting RIGHT L4 nerve root. Narrowing of the RIGHT subarticular recess appear s slightly improved compared to previous. LEFT foramen is patent. L5-S1: Mild disc bulging with slight impingement LEFT S1 nerve root in the subarticular recess. Mild LEFT foraminal narrowing unchanged compared to previous. Moderate facet arthropathy. Adrenal glands are normal. Visualized pelvic bony structures: Normal. Paravertebral soft tissues: Normal. IMPRESSION: 1. Mild lumbar curve. No acute compression. Slight anterolisthesis L3 on L4 and L4 and L5 unchanged. 2. Progressed RIGHT foraminal disc protrusion impinges the exiting L3 nerve root with severe RIGHT f oraminal narrowing. Increased foraminal protrusion compared to previous. Impingement on the traversin g RIGHT L4 nerve root at this level also. 3. Moderate RIGHT L4-5 foraminal narrowing appears stable. 4. Impingement traversing LEFT S1 nerve root in the subarticular recess with mild LEFT foraminal monique rowing appears stable. 5. Moderate facet arthropathy L3-L5 with small facet effusions. Associated periarticular edema at RI GHT L3-L4 and L4-L5 compatible with synovitis.
== END 2023-05-11 15:42 | disposition home or self-care (01) ==
LOC: RAD 15:44
PROVIDERS: PCP Electrodiagnostic Medicine; Visit Provider Orthopaedic Surgery
DX: M48.062 Spinal stenosis, lumbar region with neurogenic claudication (principal); M47.817 Spondylosis without myelopathy or radiculopathy, lumbosacral region
CPT/HCPCS: 72148

== ENCOUNTER → 2023-05-18 11:17 | Outpatient (BNVA) | payer OTHER, SELFPAY | PROVIDERS: PCP Electrodiagnostic Medicine; Visit Provider Orthopaedic Surgery | DX: M48.062 Spinal stenosis, lumbar region with neurogenic claudication; Z01.818 Encounter for other preprocedural examination | CPT/HCPCS: 36415; 80053; 81003; 85025 ==

== ENCOUNTER 2023-05-31 14:30 | Inpatient (IN) | payer OTHER, SELFPAY ==
[2023-05-28 11:20] VITALS: BMI 22.8
[2023-05-31] VITALS (18 sets, daily range): BP systolic 112–137; BP diastolic 70–106; PULSE 70–94; RESP 14–18; TEMP 36.2–37.1; O2SAT 92–99; BMI 22.8
--- NOTE | 2023-05-31 | XR_ITS ---
WS: [id number] XR lumbar spine 2-3V* [id number] REASON FOR EXAM: L3 to pelvis , instrumented fusion FINDINGS: Posterior decompression L3-S1. Tandem oblique sacrum/iliac screws at S2. Posterior pedicle screws L3-S1. Surgical appliances are intact and in proper position and alignment. IMPRESSION: Posterior lumbar fusion as above.
[2023-05-31] MEDS: sodium chloride 0.9% 1,000 ML 30 ML IV (09:03)
[2023-05-31] MEDS: methadone 10 mg Tablet PO (09:07)
--- NOTE | 2023-05-31 10:32 | ANES.PREANE2 ---
Pre-Anesthetic Assessment Height/Weight: Height 1.73 m Weight 68.039 kg Temp Pulse Resp BP Pulse Ox O2 Del Method 97.4 F L 80 18 136/106 99 Room Air 05/31/23 08:48 05/31/23 08:48 05/31/23 09:07 05/31/23 08:48 05/31/23 09:07 05/31/23 09:12 Preop Diagnosis: DDD lumbar, lumbar stenosis with neurogenic claudication Operation Date: 05/31/23 10:10 Proposed Procedures p Spinal Fusion: L3-L4(Not Applicable) - Kit Mcclendon DO s SI Joint Fusion L5/S1(Not Applicable) - Kit Yanez Caron DO s Lumbopelvic Fixation(Not Applicable) - Kit Mcclendon DO s Lumbar Spine Decompression L3-5,(Not Applicable) - Kit Mcclendon DO Was Beta Tisha taken within 24 hours: N/A Was Clonidine taken within 24 hours: N/A Last intake: Intake Last Liquid Date 05/30/23 Last Liquid Time 21:30 Last Solid Date 05/30/23 Last Solid Time 21:30 Social Tobacco 1/2 pack(s) per day Exam alert, oriented x 3 and regular rate & rhythm Airway Submandibular: within normal limits Cervical ROM: within normal limits Mallampati: Class II Dentition: chipped Comments: Comments: Several missing teeth History/ROS No significant complaints Pulmonary Chronic Obstructive Pulmonary Disease CV/HEM Hypertension GI Gastroesophageal Reflux Disease Musc/skel Lower Back Pain Neuropsych None reported Anesthetic Plan ASA status: 3 Anesthesia: General Other: 2 PIVs, a-line. Ok with blood transfusion. Risk of > 500 ml blood loss (7ml/kg in children): Yes, adequate IV access and fluids planned Medications/Allergies Home Medications Medication Instructions Recorded Confirmed Last Taken Type acetaminophen 500 mg tablet 1,000 - 1,500 mg PO PRN 02/26/20 05/28/23 Unknown History (Tylenol Extra Strength) lisinopril 10 mg tablet 10 mg PO DAILY 02/26/20 05/28/23 05/30/23 History meloxicam 15 mg tablet 15 mg PO DAILY 02/26/20 05/31/23 05/23/23 History multivitamin (Multiple Vitamins 1 tab PO DAILY 02/26/20 05/28/23 05/30/23 History tablet) nifedipine 30 mg tablet,extended 30 mg PO DAILY PRN UNKNOWN 02/26/20 05/28/23 11/10/22 History release omeprazole magnesium 20 mg 20 mg PO DAILY 02/26/20 05/28/23 05/31/23 07:45 History tablet,delayed release (Prilosec OTC) hydrocodone 5 mg-acetaminophen 325 1 - 2 tab PO .Q4-6H PRN pain 7 05/06/23 05/28/23 05/31/23 07:45 Rx mg tablet days #40 tabs [id number] Bone Growth Stimulator #1 ea 05/19/23 Unknown Rx albuterol sulfate 90 mcg/actuation 2 puff inhalation Q4H PRN 05/21/23 05/28/23 05/31/23 07:15 Rx aerosol inhaler shortness of breath or wheezing #8.5 grams fluticasone fur. 200 mcg-umeclid 1 inh inhalation DAILY 05/28/23 05/31/23 05/31/23 07:45 History 62.5 mcg-vilant 25 mcg inhalat.powder (Trelegy Ellipta) loratadine 5 mg-pseudoephedrine ER 1 tab PO Q12H PRN ALLERGIES 05/28/23 05/28/23 05/17/23 History 120 mg tablet,extended release,12hr (Claritin-D 12 Hour) Allergies Allergy/AdvReac Type Severity Reaction Status Date / Time No Known Allergies Allergy Verified 05/21/23 11:28 Current Medications Generic Name Dose Route Start Last Admin Trade Name Freq PRN Reason Stop Dose Admin Sodium Chloride 1,000 mls @ 30 mls/hr 05/31/23 08:45 05/31/23 09:03 Sodium Chloride 0.9% IV 06/01/23 08:44 30 mls/hr .Q24H TYRELL Administration PFSH Anesthesia Medical History GERD (gastroesophageal reflux disease) Raynaud disease Surgical History History of orthopedic surgery History of tonsillectomy and adenoidectomy Hx of appendectomy Family History Family/Other CAD (coronary artery disease) Diabetes Grandmother Diabetes Other Hypertension Social History Smoking and tobacco status: current every day smoker cigarettes Packs smoked per day: 0.5 Years cigarettes smoked: 30 and smokeless tobacco Smokeless tobacco user: snuff Smokeless tobacco details: can q 2-3 days Second hand smoke exposure: Yes Alcohol intake: current Alcohol intake frequency: few times a month Substance/Drug Use: never Lives independently: Yes Household members: spouse Marital status: Current occupational status: employed Current occupation: [employer] Current gender identity: Male Special channing needs: No Agree to transfusion: Yes Data Anesthesia Blood Bank 05/31/23 09:00 Blood Type B Positive Rho(D) Type Positive Antibody Screen Negative Cardiac Studies: No Data to Display
[2023-05-31] MEDS: ceFAZolin 2,000 MG in sodium chloride 0.9% (plus) 50 ML 100 MG IV ×2 (11:25→18:36)
[2023-05-31] MEDS: lidocaine-epi 1% 20 mL INJ INJECTION (11:59)
[2023-05-31] MEDS: heparin, porcine 1,000 unit/mL INJ 10 mL 10000 UNIT IRRIGATION (12:00)
--- NOTE | 2023-05-31 12:19 | W.PM.OPSUD ---
Surgery/Procedure H&P Update DATE OF PROCEDURE: May 31, 2023 DATE H&P PERFORMED: 05/18/23 H&P UPDATE INFORMATION: I have reviewed H&P completed within last 30 days, I have examined patient prior to procedure and No changes to prior documentation PREOP DIAGNOSIS: DDD lumbar, lumbar stenosis with neurogenic claudication PLANNED PROCEDURE: Operation Date: 05/31/23 10:10 Proposed Procedures p Spinal Fusion: L3-L4(Not Applicable) - Kit Mcclendon DO s SI Joint Fusion L5/S1(Not Applicable) - DO magdiel Lopez Lumbopelvic Fixation(Not Applicable) - DO magdiel Lopez Lumbar Spine Decompression L3-5,(Not Applicable) - Kit Mcclendon DO
[2023-05-31] MEDS: vancomycin 1,000 MG SDV 1000 MG XX (14:17)
--- NOTE | 2023-05-31 14:41 | P.OP_ITS ---
Operative Report Date of procedure: May 31, 2023 Pre-op diagnosis: Lumbar stenosis with neurogenic claudication Post-op diagnosis: same Procedure done: 1. L5/S1 Interbody fusion with posterolateral fusion 2. Instrumentation L3-pelvis 3. Lumbopelvic fusion 4. Cage at L5/S1 5. L3/4 laminectomy with partial facetectomy 6. L4/5 laminectomy with partial facetectomy 7. L5/S1 laminectomy with partial facetectomy 8. Right open SI joint fusion 9. Left open SI joint fusion 10. use of computer navigation stereotactic 11. use of autograft from same incision 12. allograft 13. Bone marrow aspirate from right iliac crest Surgeon: Kit Mcclendon DO Athletic Coordinator: Mike Rodriguez Athletic Coordinator: The neurosurgical nurse practitioner, Mike Rodriguez, MARIA DE JESUS was needed for his expertise under the microscope. He was important and necessary throughout the procedure to complete in a safe and timely manner. He assisted with patient positioning prepping and draping tissue retraction suctioning of the operative field protection of the dural sac and tissue closure Estimated blood loss (mL): 500 Procedure: 1. L5/S1 Interbody fusion with posterolateral fusion 2. Instrumentation L3-pelvis 3. Lumbopelvic fusion 4. Cage at L5/S1 5. L3/4 laminectomy with partial facetectomy 6. L4/5 laminectomy with partial facetectomy 7. L5/S1 laminectomy with partial facetectomy 8. Right open SI joint fusion 9. Left open SI joint fusion 10. use of computer navigation stereotactic 11. use of autograft from same incision 12. allograft 13. Bone marrow aspirate from right iliac crest Patient is brought to the operative suite. After undergoing anesthesia, the patient had neuro monitoring attached. Patient was then placed in the prone position on the Julio César table. All areas of impingement were well-padded. Patient was then prepped and draped in the normal sterile fashion. Skin incision was then made over the L3-S1 space. Subperiosteal dissection was made out to the transverse processes of L3and L4 and L5 and sacral ala. The [employer] bone marrow aspirate kit was used to aspirate bone marrow aspirate in the right iliac crest. This was done by using the sharp probe to open up the bone. Aspiration was performed and then the blunt probe was then used to dissect down to through the bone tunnel. An aspirating well drawn back a millimeter approximately 20 cc of bone marrow aspirate was used. Admixed with the allograft and autograft bone that will be used. Next attention was brought to placing the fiducial. Was done by placing 2 pins in the iliac crest. These pins were removed within the case. Fiducial was attached. And then the C-arm was brought in on the patient. The information then loaded in the computer. This was later used for placing the pedicle screws. The technique for placing the pedicle screws was to use a drill followed by the gearshift probe linked to computer navigation. Followed by the ball probe to feel the superior inferior medial lateral royal of the pedicles. Then placement of the screws linked to computer navigation. Was done at each pedicle. Screws were placed at L3 bilaterally and L4 bilaterally L5 bilaterally and S1 bilaterally. Next attention was brought to placing the iliac screws. These were placed in the sacral ala iliac technique. The gearshift probe linked. Navigation was then driven through the ala into the sacroiliac joint into the iliac crest. And then the navigated tap was placed and then 100 mm screw was placed on the right side. An 80 mm screw was placed on the left side the technique for placing the screws was done bilaterally both using computer navigation. Next attention was brought to doing the open sacral iliac fusions. This was done by using the gearshift probe going across the SI joint superior to the screw. Once this was passed and a wire was passed then this wire was drilled. Bone graft was then packed into the SI joint. And then the screw was placed across this. This was done on both the right and the left side openly. Next attention was brought to performing the laminectomy ofL5. This was done using the high-speed bur Kerrisons and curettes. Once the lamina was removed and then attention was brought to performing a partial facetectomy on the contralateral side. This was done again using the high-speed bur curettes and Kerrisons. The ligamentum flavum was taken down bilaterally from L5 to S1. Attention was then brought to the facet on the ipsilateral side. The facet was taken down. The S1 nerve was decompressed as it passed around the S1 pedicle. The laminectomy was done for purposes of decompressing the nerve as well as placement of the cage. The L5 nerve was identified as it traversed through the L5/S1 foramen. The thecal sac was identified and retracted. The L5/S1 disc base was identified. Using a knife the disc base was opened. And then sequential da were placed. The first shaver was a 6 and the last shaver was a 8. Using a pituitary and down going curette the endplates were scraped and disc material was removed from the space. Once adequate decompression of the disc base was felt to be had. Osteoamp sponge was packed into the anterior aspect of the disc base. Then a size 9 cage from [employer] was placed after packing osteoamp into the cage. While placing the cage the thecal sac and S1 nerve was protected. C arm was used to ensure that the cages placed in the appropriate position. Next attention was brought to doing the L4-5 laminectomy with facetectomy. This was done mainly on the right side because the patient's pain is on the right leg. Patient had a previous laminectomy site. At this point high-speed bur was used to take down the remaining facet and lamina. Curved curette and Kerrisons were used to peel down the remaining bone and make sure that the L5 and L4 nerve roots were completely freed up. This process was repeated at the L3-4 level. Again the high-speed bur was used to take down the facet joint as well as the remaining lamina of L3. L3-4 facet was taken down. Curved curettes and Kerrison rongeurs were used to remove bone and scar tissue. The L3 and L4 nerves were found to be completely decompressed. Attention was then brought to attaching the rods to the screws placed in the L3 bilaterally, L4 bilaterally L5 bilaterally S1 bilaterally and connecting to the iliac screws in order to facilitate the lumbopelvic fixation.. Caps were torqu ed into position. Locking the construct in place. Wound was copiously irrigated and then attention was brought to decorticating the facets and transverse processes laterally. Bone that was taken down from the lamina was used along with osteoamp fibers and sponges were packed into the lateral gutters along the facet joints. This was done bilaterally. Wound was then closed in a layered fashion starting with the thoracolumbar fascia. 0-vicryl was used the sub cutaneous tissue was closed with 2-0 vicryl and skin with 4-0 monocryl. Glue was then used to seal the skin and a steril dressing was applied. Patient was then placed in the supine position. The endotracheal tube was removed and patient was transferred to the PACU in stable condition.
[2023-05-31] MEDS: ipratropium-albuterol 3 mL Neb INHALATION (15:51)
[2023-05-31] MEDS: lactated ringers 1,000 ML 90 ML IV (16:30)
--- NOTE | 2023-05-31 17:10 | ANE.PACU2 ---
Inpatient post-anesthesia follow up: Airway intact: Yes Vital signs: Temperature 98.0 F Pulse Rate 81 Respiratory Rate 16 Blood Pressure 127/85 Pulse Oximetry 95 Oxygen Delivery Me thod Nasal Cannula Oxygen Flow Rate 2 Fraction of Inspir ed Oxygen Hydration adequate: Yes Nausea and vomiting: No Pain level: 3 Mental status: Baseline
[2023-05-31] MEDS: HYDROcodone-acetaminophen 10-325 mg Tablet PO ×2 (17:18→21:37)
[2023-05-31] MEDS: docusate sodium 100 mg Capsule PO (17:19)
[2023-06-01 00:19] VITALS: BP 130/83; PULSE 87; RESP 16; TEMP 36.7; O2SAT 97
[2023-06-01] MEDS: ceFAZolin 2,000 MG in sodium chloride 0.9% (plus) 50 ML 100 MG IV ×2 (02:47→11:27)
[2023-06-01] MEDS: HYDROcodone-acetaminophen 10-325 mg Tablet PO ×3 (02:47→12:38)
[2023-06-01] MEDS: lactated ringers 1,000 ML 90 ML IV (03:28)
[2023-06-01 04:38] VITALS: BP 142/85; PULSE 68; RESP 15; TEMP 36.4; O2SAT 97
[2023-06-01 07:46] VITALS: BP 151/94; PULSE 74; RESP 16; TEMP 36.6; O2SAT 97
--- NOTE | 2023-06-01 07:48 | PM.PN ---
Subjective Subjective: POD 1 Patient resting comfortably. Reports back pain improvement of lower extremity pain. Denies any shortness of breath, chest pain, headaches. Vitals/I&O/Wt Last Vital Signs Temp 97.8 F 06/01/23 07:46 Pulse 74 06/01/23 07:46 Resp 16 06/01/23 07:46 BP 151/94 06/01/23 07:46 Pulse Ox 97 06/01/23 07:46 O2 Del Method Room Air 06/01/23 04:38 O2 Flow Rate 1 05/31/23 19:42 05/31/23 06/01/23 06/01/23 22:59 06:59 14:59 Intake Total 726.5 / 2276.5 1037 / 3313.5 Output Total 835 / 2135 750 / 2885 Balance -108.5 / 141.5 287 / 428.5 Weight last 48 hrs Weight 150 lb Physical Exam Narrative: Patient presents alert and oriented x3 with a good general appearance normal mood and affect. Normal coordination normal stability. Mild tenderness around the incisional site with the incision appear to be clean and dry. No signs of erythema or drainage. No signs of infection. Patient denies any fevers or chills. 5/5 motor strength both lower extremities with negative straight leg raise bilaterally. Calves are supple no medial thigh tenderness. Pulses are 2+ at the dorsalis pedis and posterior tibial region. Good capillary refill throughout normal sensation light touch both lower extremities. Urinary Catheter Management: Naylor: Cath Placed During This Visit: yes Reason for Continuing Indwelling Catheter: Perioperative Use in Selected Surgeries Urinary Catheter Date of Insertion: 05/31/23 Urinary Catheter Time of Insertion: 11:40 A&P Assessment and plan (1) Status post lumbar spinal fusion: Discontinue Naylor catheter and Hemovac drain. Physical therapy to mobilize. Discharge home later today if remaining stable. Encourage incentive spirometry for pulmonary toilet at home as well. We will see him back in the office in 1 week's time. Attestations Medical Necessity Statement*: Discharge home later today if stable. Coding Level of Care Code Acute Code for Chg Fwd Diagnoses Status post lumbar spinal fusion Z98.1
[2023-06-01 08:23] VITALS: PULSE 90; RESP 16; O2SAT 95
--- NOTE | 2023-06-01 09:57 | PC.CHAP ---
Pastoral Care Encounter/Spiritual Assessment Type of Contact [] Declined lodge officer visit [] Patient/Family/Request visit [] Outpatient visit [] Follow-up visit [] Physician referral [] Code/Alert [] Routine visit [] Staff referral [] Actively dying [] Patient sleeping [] Family support [] [] Out of room [] Palliative care [] [x] Receiving care in room [] Pre-surgical visit [] Trauma [] Long length of stay [] ICU visit [] Other: Relational/Emotional Strength [] Patient feels connected with others/family/visitors/staff [] Distress [] Loneliness/isolation [] Abandonment Spirituality of Patient [] Person of [place] [] Attends Baptism of their [place] [] Believes in Prayer [] Reads Bible or Scientology materials [] There are Spiritual issues to be addressed Corporate Travel Coordinator Interventions [] Prayer [] Active listening [] Non-anxious presence [] Spiritual/emotional support [] Crisis/trauma care [] Spiritual counseling [] Bereavement support [] Provided bereavement packet [] Provided Bible/devotional materials [] Provided toy/stuffed animal, coloring book to patient or family member [] Provided Communion [] Anointing/[place] [] Salvation [] Completed spiritual assessment [] Other: Impact on Illness or Injury [] Angry [] Fearful [] Anxious [] Often cries [] Exhaustion [] Unable to work [] Unable to attend buddhist [] Unable to walk/stand [] Unable to read [] Unable to drive [] Unable to eat/drink [] Unable to sleep [] Unable to be with family [] Patient intubated [] Other: Summary Time spent with patient
[2023-06-01] MEDS: lisinopril 10 mg Tablet PO (10:10)
[2023-06-01] MEDS: pantoprazole DR 40 mg Tablet PO (10:10)
[2023-06-01] MEDS: multivitamin therapeutic Tablet 1 TAB PO (10:10)
[2023-06-01] MEDS: docusate sodium 100 mg Capsule PO (10:10)
--- NOTE | 2023-06-01 10:44 | PC.NURSE ---
dc pending pt voiding following harrison removal
[2023-06-01 11:18] VITALS: BP 126/83; PULSE 78; RESP 17; TEMP 36.6; O2SAT 97
--- NOTE | 2023-06-01 13:29 | PC.NURSE ---
hemavac removed at approx 1245. Tip intact. Pressure dressing applied.
[2023-06-01 14:05] VITALS: BP 126/83; PULSE 78; RESP 17; TEMP 36.6; O2SAT 97
--- NOTE | 2023-06-02 11:48 | PM.DCS ---
Discharge Providers Date of Admission: 05/31/23 14:30 Date of Discharge: June 01, 2023 Attending Provider at Admission: Kit Mcclendon DO Attending Provider at Discharge: Kit Mcclendon DO Primary Care Provider: Christ Miranda DO Diagnoses at Discharge Discharge Diagnosis (1) Status post lumbar spinal fusion: Status: Acute Reason for Visit Reason for Visit: Si Joint Function Physical Exam Urinary Catheter Management: Naylor: Cath Placed During This Visit: yes, but has since been removed by the nurse Reason for Continuing Indwelling Catheter: Decision to DC Catheter Urinary Catheter Date of Insertion: 05/31/23 Urinary Catheter Time of Insertion: 11:40 Date Urinary Catheter Removed: 06/01/23 Time Urinary Catheter Discontinued: 08:00 Discharge Data Studies Completed and Pending Completed Studies During Hospitalization Category Date Time Status XR lumbar spine 2-3V* [id number] Routine Exams 05/31/23 Completed Laboratory Results Blood Type B Positive 05/31/23 09:00 Rho(D) Type Positive 05/31/23 09:00 Antibody Screen Negative 05/31/23 09:00 Vitals Last Vital Signs Temp 98 F 06/01/23 14:05 Pulse 78 06/01/23 14:05 Resp 17 06/01/23 14:05 BP 126/83 06/01/23 14:05 Pulse Ox 97 06/01/23 14:05 O2 Del Method Room Air 06/01/23 08:23 O2 Flow Rate 1 06/01/23 08:00 Discharge Plan Discharge Patient Disposition: Home Condition: Good Prescriptions: New hydrocodone-acetaminophen 10-325 mg Tablet 1 tab PO Q4H PRN (Reason: Postop pain) Qty: 30 0RF hydrocodone-acetaminophen 10-325 mg tablet 1 tab PO Q4H PRN (Reason: pain) 7 Days Qty: 40 0RF Continued lisinopril 10 mg tablet 10 mg PO DAILY Rx Instructions: rx written for 10mg bid but pt states he only takes 10mg once a day omeprazole magnesium [Prilosec OTC] 20 mg tablet,delayed release (DR/EC) 20 mg PO DAILY albuterol sulfate 90 mcg/actuation HFA aerosol inhaler 2 puff inhalation Q4H PRN (Reason: shortness of breath or wheezing) Qty: 8.5 0RF Trelegy Ellipta 200-62.5-25 mcg blister with device 1 inh inhalation DAILY hydrocodone-acetaminophen 5-325 mg tablet 1 - 2 tab PO .Q4-6H PRN (Reason: pain) 7 Days Qty: 40 0RF (DME) [id number] Bone Growth Stimulator See Rx Instructions .Route .MEDSUPPLY Qty: 1 0RF Rx Instructions: As directed multivitamin [Multiple Vitamins] Tablet 1 tab PO DAILY nifedipine 30 mg tablet extended release 30 mg PO DAILY PRN (Reason: UNKNOWN) Rx Instructions: ONLY TAKES THIS MEDICAITON IN WINTER Claritin-D 12 Hour 5-120 mg tablet extended release 12 hr 1 tab PO Q12H PRN (Reason: ALLERGIES) Vitamin D3 25 mcg (1,000 unit) Capsule 25 mcg PO DAILY Held meloxicam 15 mg tablet 15 mg PO DAILY Hold Instructions: Resume on 07/14/23. Discharge Orders: Discharge Order (Routine); Ordered 06/01/23 Ordered By: Mike Rodriguez Referrals: Kit Mcclendon DO [Physician] - 06/08/23 1:15 pm Christ Miranda DO [Primary Care Provider] - 06/09/23 11:20 am Discharge Diet: Advance as tolerated Discharge Activity: Limit activity as instructed Patient Instructions: Hydrocodone/Acetaminophen (By mouth), Lumbar Spinal Fusion (GEN), Opioid Safety Activity Restrictions/Additional Instructions: Thank you for choosing [facility] for your care! The following is a list of instructions, from your provider, to follow upon your discharge to ensure you have the optimal recovery from your recent injury or surgery. Follow-up care is a goldman part of your treatment and safety. Be sure to make and go to all appointments and call your doctor if you are having problems. If you do not already have a follow-up appointment made, call Dr. Mcclendon's] office in the next 1-3 days to make follow up appointment for [1-2] weeks at [phone]. It is also a good idea to know your test results and keep a list of the medicines you take. Medications will be prescribed for you at your provider's discretion. These medications are to be used as instructed; if they are taken more often that prescribed they will not be refilled early and in most cases will not be refilled at all. > When a refill is needed, you should contact [facility] 2-3 business days before your prescription runs out. Medications will NOT be refilled by contact center engineer providers after hours! > Many pain medications contain Tylenol (Acetaminophen). Do not consume more than 4,000 mg of Tylenol per day in total with any combination of medications. > Pain medications can cause constipation. Please use an over the counter stool softener as directed, while taking pain medications. Consult your local pharmacist with questions or recommendations on stool softeners. If constipation persists, contact our office or your primary care provider. > While under our care, you are not to receive pain medications or other controlled substances from any other provider unless our office is notified and approves. Any attempts to do so will result in refusal to prescribe any further pain medications and possible dismissal from our practice. ? Walking is essential for the healing process after surgery. We would like you to slowly advance your walking. This should be done on relatively flat clear ground (inside or out) or can be done on a treadmill. Remember this goal does not have to happen all at once, slowly increase your distance and duration. This can be broken into more more than one walk per day as tolerated. Patients who walk as directed after surgery rarely require Physical Therapy. In the unlikely event this issue arises your provider will direct hospital staff to make the appropriate arrangements. ? No lifting over 5 pounds {a gallon of milk) or bending/twisting until further notice. Each of these activities places an unnecessary amount of stress onto the body and can impede the delicate healing process. > Instead of bending at the waist, keep your back straight and bend at the knees. > Instead of twisting your torso, keep your back straight and turn your entire body with your feet. ? You may sleep in any position which makes you comfortable. Many patients find comfort sleeping in a reclining chair. It is not abnormal to have difficulty sleeping for the first several weeks following your surgery. We recommend trying Benadry! or Tylenol PM as directed to help with your sleeping difficulties. Both medications are over the counter and available without prescription. ? NO SMOKING!!! Smoking dramatically increases the probability of developing postoperative wound infections. ? Common complaints after lumbar and/or thoracic spine surgery include, but are not limited to: numbness and/or tingling in the legs, pain around the incision and surrounding tissues, muscle spasms, or stiffness of the middle to low back. Contact our office if these symptoms persist or if an acute change occurs. ? No driving for the first 3-5days, and not while taking narcotics until seen at your follow-up appointment and cleared. There are no restrictions for riding on short trips, however if you take a longer trip, arrangements should be made to make regular stops to get out of the vehicle and stretch . ? Swelling is an unfortunate event that will take place with any surgery and is the primary source of your postoperative discomfort. While walking and regular approved activities helps control inflammation, there are additional steps you can take to minimize swelling. > Place ice over the surgical site and surrounding tissue for twenty minutes, followed by applying a low/medium heat (heating pad) for an additional twenty minutes every 1-2 hours as needed for painrelief. > You may use of over the counter anti-inflammatory medications (Ibuprofen, Motrin, Aleve, Advil, etc) as directed on the package label. These types of medicines will significantly reduce the amount of discomfort you experience after surgery from swelling. It should be noted that if you have and allergy to any of these medications, or a history of ulcers or kidney disease you should consult you primary care provider prior to starting these medications. Discharge Attestations Time Spent in Discharge Care*: less than 30 min Quality Metrics Clinical Quality Measures [ No reported AMI, CVA or VTE this stay] Coding Level of Care Code Acute Code for Chg Fwd Diagnoses Status post lumbar spinal fusion Z98.1
== END 2023-06-01 14:06 | disposition home or self-care (01) | DRG 455 ==
LOC: MEDSURG 14:40
PROVIDERS: Admitting Provider Orthopaedic Surgery; PCP Electrodiagnostic Medicine; Visit Provider Orthopaedic Surgery
PROC: 0SG107J Fusion of 2 or more Lumbar Vertebral Joints with Autologous Tissue Substitute, Posterior Approach, Anterior Column, Open Approach (ICD-10-PCS; principal; 2023-05-31 10:00)
PROC: 0SG107J Fusion of 2 or more Lumbar Vertebral Joints with Autologous Tissue Substitute, Posterior Approach, Anterior Column, Open Approach (ICD-10-PCS; CPT 27280; 2023-05-31 10:00)
PROC: 0SG107J Fusion of 2 or more Lumbar Vertebral Joints with Autologous Tissue Substitute, Posterior Approach, Anterior Column, Open Approach (ICD-10-PCS; 2023-05-31 10:00)
PROC: 0SG107J Fusion of 2 or more Lumbar Vertebral Joints with Autologous Tissue Substitute, Posterior Approach, Anterior Column, Open Approach (ICD-10-PCS; CPT 63005; 2023-05-31 10:00)
DX: M48.062 Spinal stenosis, lumbar region with neurogenic claudication (principal); Z79.891 Long term (current) use of opiate analgesic; K21.9 Gastro-esophageal reflux disease without esophagitis; I73.00 Raynaud's syndrome without gangrene; F17.210 Nicotine dependence, cigarettes, uncomplicated; F17.220 Nicotine dependence, chewing tobacco, uncomplicated; J44.9 Chronic obstructive pulmonary disease, unspecified; I10 Essential (primary) hypertension
CPT/HCPCS: 36415; 51702; 72100; 86850; 86900; 94640; 97116; 97161; 97530; C1713; C1762; J0330; J0690; J1100; J1170; J1644; J2250; J2405; J2704; J2710; J3010; J3370; J3490; J7030; J7120; P9045

== ENCOUNTER → 2023-06-17 14:08 | Outpatient (BNVA) | payer OTHER, SELFPAY | PROVIDERS: PCP Electrodiagnostic Medicine; Visit Provider Physician Assistant | DX: Z98.1 Arthrodesis status (principal); Z47.89 Encounter for other orthopedic aftercare | CPT/HCPCS: 72100 ==

== ENCOUNTER → 2023-07-01 08:09 | Outpatient (BNVA) | payer OTHER, SELFPAY | PROVIDERS: PCP Electrodiagnostic Medicine; Visit Provider Physician Assistant | DX: Z98.1 Arthrodesis status (principal) | CPT/HCPCS: 72100 ==

== ENCOUNTER → 2023-07-20 10:08 | Outpatient (BNVA) | payer OTHER, SELFPAY | PROVIDERS: PCP Electrodiagnostic Medicine; Visit Provider Physician Assistant | DX: Z98.1 Arthrodesis status (principal); Z47.89 Encounter for other orthopedic aftercare | CPT/HCPCS: 72100 ==

== ENCOUNTER → 2023-08-26 09:40 | Outpatient (BNVA) | payer OTHER, SELFPAY | PROVIDERS: PCP Electrodiagnostic Medicine; Visit Provider Physician Assistant | DX: Z98.1 Arthrodesis status (principal); Z47.89 Encounter for other orthopedic aftercare | CPT/HCPCS: 72100 ==

== ENCOUNTER → 2023-11-23 14:03 | Outpatient (BNVA) | payer OTHER, SELFPAY | PROVIDERS: PCP Electrodiagnostic Medicine; Visit Provider Orthopaedic Surgery | DX: Z98.1 Arthrodesis status (principal) | CPT/HCPCS: 72100 ==

== ENCOUNTER → 2024-05-25 12:44 | Outpatient (BNVA) | payer OTHER, SELFPAY | PROVIDERS: PCP Electrodiagnostic Medicine; Visit Provider Orthopaedic Surgery | DX: Z98.1 Arthrodesis status (principal) | CPT/HCPCS: 72100 ==

== ENCOUNTER 2024-11-14 11:29 | Outpatient (CLI) | payer OTHER, SELFPAY ==
--- NOTE | 2024-11-14 11:38 | USCV_ITS ---
Jose Amin Age: 64 Gender: M : 1960 Exam Date: 11/14/2024 12:11 Ordering Phys: Christ Miranda DO Technologist: Exam [place]: [facility] [place]: cp BP: 130 / 80 HR: 83 Rhythm: Sinus Technical Quality: Adequate MEASUREMENTS (Male / Female) Normal Values 2D ECHO LV Diastolic Diameter PLAX 4.2 cm 4.2 - 5.9 / 3.9 - 5.3 cm IVS Diastolic Thickness 1.3 cm 0.6 - 1.0 / 0.6 - 0.9 cm IVS Systolic Thickness 1.9 cm LVPW Diastolic Thickness 1.2 cm 0.6 - 1.0 / 0.6 - 0.9 cm LVPW Systolic Thickness 1.4 cm LVOT Diameter 2.1 cm LV Ejection Fraction 2D Teich 52.6 % LV Ejection Fraction MOD 4C 64.5 % LV Ejection Fraction MOD 2C 62.8 % LV Ejection Fraction 2C AL 62.0 % LA Diameter 3.5 cm RA Systolic Volume 4C AL 30.5 ml RA Systolic Volume 4C MOD 29.0 ml Aorta at Sinotubular Diameter 3.3 cm IVC Diameter 1.9 cm M-MODE LA Ao Ratio MM 1.2 AV Cusp Separation MM 2.7 cm DOPPLER AV Peak Velocity 134.0 cm/s LVOT Peak Velocity 91.0 cm/s AV Area Cont Eq vti 2.9 cm squared AV Area Cont Eq pk 2.3 cm squared MV Peak Velocity 84.0 cm/s MV Area PHT 4.1 cm squared Mitral E to A Ratio 0.6 TV Peak Velocity 229.5 cm/s TR Peak Velocity 264.0 cm/s TR Peak Gradient 27.9 mmHg TV Peak E Velocity 84.0 cm/s PV Peak Velocity 107.0 cm/s FINDINGS Left Ventricle Normal left ventricular size, systolic function and wall thickness, with no regional wall motion abnormalities. Left ventricular ejection fraction is estimated at 60%. Grade I/IV diastolic dysfunction (abnormal relaxation filling pattern), normal to mildly elevated filling pressures. Right Ventricle The right ventricle is normal in size and function. Right Atrium The right atrium is normal in size. Left Atrium The left atrium is normal in size. Mitral Valve Structurally normal mitral valve without significant stenosis or prolapse. There is no mitral regurgitation. Aortic Valve Structurally normal aortic valve without significant sclerosis or stenosis. There is no aortic regurgitation. Tricuspid Valve Structurally normal tricuspid valve without significant stenosis or regurgitation. Pulmonary artery systolic pressure is normal. Pulmonic Valve Structurally normal pulmonic valve without significant stenosis. There is no pulmonic regurgitation. Pericardium Normal pericardium without effusion. Aorta Normal ascending aorta dimension. IVC The inferior vena cava appears normal. CONCLUSIONS Normal left ventricular size, systolic function and wall thickness, with no regional wall motion abnormalities. Left ventricular ejection fraction is estimated at 60%. Grade I/IV diastolic dysfunction (abnormal relaxation filling pattern), normal to mildly elevated filling pressures. There is no pericardial effusion. No significant valve abnormalities. Right atrial pressure is around 5 mm of mercury. Thnaia Bañuelos MD (Electronically Signed) Final Date: 15 November 2024 19:36 S
== END 2024-11-14 11:30 | disposition home or self-care (01) ==
PROVIDERS: PCP Electrodiagnostic Medicine; Visit Provider Electrodiagnostic Medicine
DX: R42 Dizziness and giddiness (principal); I50.30 Unspecified diastolic (congestive) heart failure
CPT/HCPCS: 93306

== ENCOUNTER → 2025-08-16 07:51 | Outpatient (BNVA) | payer MEDICAID, SELFPAY | PROVIDERS: PCP Electrodiagnostic Medicine; Visit Provider Orthopaedic Surgery | DX: M48.062 Spinal stenosis, lumbar region with neurogenic claudication (principal); M53.3 Sacrococcygeal disorders, not elsewhere classified | CPT/HCPCS: 72110 ==

== ENCOUNTER 2025-08-28 08:45 | Outpatient (CLI) | payer MEDICAID, SELFPAY ==
--- NOTE | 2025-08-28 08:45 | CTR_ITS ---
PROCEDURE INFORMATION: Exam: CT Pelvis Without Contrast, Skeleton Exam date and time: 08/28/2025 9:01 AM Age: 65 years old Clinical indication: Pain and injury or trauma; Fall; Blunt trauma (contusions or hematomas); Bilateral; Other: Tail bone; Injury date: 06/2025; Injury details: Fell the first part of jun, tailbone pain and numbness and tingling down right leg and butt cheek, had shingles in July; Additional info: Tail bone pain TECHNIQUE: Imaging protocol: Computed tomography of the pelvis without contrast. Exam focused on the skeleton. Radiation optimization: All CT scans at this facility use at least one of these dose optimization techniques: automated exposure control; mA and/or kV adjustment per patient size (includes targeted exams where dose is matched to clinical indication); or iterative reconstruction. COMPARISON: MR lumbar spine wo con* [id number] 05/11/2023 4:47 PM RADIATION DOSE METRICS: Total DLP (mGy-cm): 225.68 FINDINGS: Kidneys and ureters: Small right intrarenal calculi. Intestine: Bowel caliber is normal. No paracolonic inflammatory changes. Intraperitoneal space: No free intraperitoneal fluid or gas. Reproductive: The prostate gland is enlarged. Colonic diverticulosis. Urinary bladder: No focal wall thickening of the urinary bladder. Bones/joints: Intact posterior metallic fusion device involving the lower lumbar spine and sacroiliac joints. Interbody spacer device noted at L5-S1. No acute fractures. Scattered sclerotic foci in the bones are nonaggressive appearing. Mild degenerative changes in both hips. Moderate degenerative changes in the pubic symphysis. Soft tissues: Unremarkable. CT/CT pelvis wo con [id number] IMPRESSION: No acute fractures.
== END 2025-08-28 08:46 | disposition home or self-care (01) ==
LOC: RAD 08:49
PROVIDERS: PCP Electrodiagnostic Medicine; Visit Provider Orthopaedic Surgery
DX: M53.3 Sacrococcygeal disorders, not elsewhere classified (principal); N20.0 Calculus of kidney; N40.0 Benign prostatic hyperplasia without lower urinary tract symptoms; K57.30 Diverticulosis of large intestine without perforation or abscess without bleeding; M43.27 Fusion of spine, lumbosacral region; M16.0 Bilateral primary osteoarthritis of hip; S30.0XXD Contusion of lower back and pelvis, subsequent encounter; W19.XXXD Unspecified fall, subsequent encounter
CPT/HCPCS: 72192